=== PATIENT | female | born 1935 | race Two or more races ===

== ENCOUNTER 2025-02-08 12:19 | Emergency (ER) | payer OTHER ==
[~2025-02-08] VITALS: Ht 149.9 cm; Wt 66.7 kg
[2025-02-08 12:46] VITALS: BP 116/71; O2SAT 96
[2025-02-08] MEDS ORDERED: LANTUS SOL100 UNIT/1 SQ (12:47)
[2025-02-08] MEDS ORDERED: LIPITOR40 M1 PO (12:48)
[2025-02-08] MEDS ORDERED: ZESTRIL2.5 MG PO (12:48)
[2025-02-08] MEDS ORDERED: JARDIANCE10 MG PO (12:48)
[2025-02-08] MEDS ORDERED: FAMOTIDINE/PF 20 MG/2 ML VIAL IV ONE (13:30)
[2025-02-08] MEDS ORDERED: 0.9 % SODIUM CHLORIDE 1,000 ML IV SCH (13:30)
[2025-02-08] MEDS ORDERED: CEFTRIAXONE SODIUM 1,000 MG VIAL IV ONE ×2 (13:30→17:15)
[2025-02-08] MEDS ORDERED: INSULIN REGULAR, HUMAN 1,000 UNIT/10 ML UNITS SUBCUTANEO ONE (13:30)
[2025-02-08 14:15] LABS: BASO % 0.3 % (0.1-1.2); EOS # 0.04 (0.04-0.54); EOS % 0.4 % (0.7-7.0); LYMPH # 1.81 (1.18-3.74); LYMPH % 16.8 % (19.3-53.1); MEAN PLATELET VOLUME 12.10 fl (9.4-12.4); MONO # 0.95 (0.24-0.82); MONO % 8.8 % (4.7-12.5); NEUT # 7.87 (1.56-6.13); NEUT % 73.1 % (34.0-71.1); RED CELL DISTRIBUTION WIDTH 12.9 % (11.6-14.4)
[2025-02-08 14:21] LABS: ERYTHROCYTE SEDIMENTATION RATE 38 mm/hr (0-30)
[2025-02-08 14:44] LABS: ALT/SGPT 25 U/L (12-78); AST/SGOT 11 U/L (15-37); BILIRUBIN TOTAL 0.53 mg/dL (0.3-1.2); BUN CREA RATIO 48 (7.0-25.0); CREATININE SERUM 1.34 mg/dL (0.55-1.02); GFR 37.33; GLOBULINA 3.9 G/DL (2.4-3.5)
[2025-02-08 14:54] LABS: OSMOLALITY SERUM 317 MOSM/KG (275-295)
[2025-02-08 14:57] LABS: GLUCOSE FASTING 520 mg/dL (65-100)
[2025-02-08 16:16] LABS: URINE APPEARANCE Clear; URINE BILIRRUBIN Negative (NEGATIVE); URINE BLOOD NHT; URINE COLOR Yellow; URINE KETONE Negative (NEGATIVE); URINE LEUKOCYTE Moderate; URINE NITRATE Negative; URINE PROTEIN Negative (NEGATIVE); URINE UROBILINOGEN 0.2 E.U./dl
[2025-02-08 16:19] LABS: URINE EPITHELIAL CELLS 2.3 uL (0.0-38.8); URINE RBC 9.2 uL (0.0-20.8); URINE WBC 140.4 uL (0.0-23.2)
[2025-02-08 16:20] LABS: URINE BACTERIA > 9821.5 uL (0.0-1933); URINE CAST 0.00 uL (0.0-1.40); URINE GLUCOSE >=1000 MG/DL (NEGATIVE)
[2025-02-08 16:21] LABS: COVID-19 AG NEGATIVE (NEGATIVE)
[2025-02-08] MEDS ORDERED: CEFTRIAXONE SODIUM 1,000 MG VIAL ONE (17:29)
== END 2025-02-08 18:34 | disposition home or self-care (01) ==
LOC: ER 12:19
PROVIDERS: Student in an Organized Health Care Education/Training Program
DX: E11.65 Type 2 diabetes mellitus with hyperglycemia (principal); Z79.4 Long term (current) use of insulin; Z79.84 Long term (current) use of oral hypoglycemic drugs; N39.0 Urinary tract infection, site not specified; Z20.822 Contact with and (suspected) exposure to COVID-19; I10 Essential (primary) hypertension
CPT/HCPCS: 36415; 82803; 93005; 96365; 96366; 99283; J0696; J3490; J7030